=== PATIENT | female | born 1960 | race African-American/Black ===

== ENCOUNTER → 2016-08-25 | Outpatient (REF) ==
[~2016-08-25] MED LIST: ADIPEX-P37.5 M1 PO; AMOXICILLIN 8751 TAB PO; ASPIRIN 32325 MG/TAB PO; BIOTIN1000 MCG PO; CORICIDIN COUGH1 TAB PO; GLUCOPHAGE500 MG/TAB PO; HCTZ 25MG TAB25 MG PO; LIPITOR20 MG PO; MEVACOR40 MG PO; PRIL40 PO; SINUS PO; TENORMIN 2525 MG/TAB PO
== END ==
LOC: WSOH 10:57
DX: Z02.1 Encounter for pre-employment examination (principal)

== ENCOUNTER → 2016-08-25 | Outpatient (REF) | LOC: WSOH 11:00 | DX: Z00.00 Encounter for general adult medical examination without abnormal findings (principal) ==

== ENCOUNTER → 2016-09-01 | Outpatient (REF) | LOC: WSOH 08:21 | DX: Z23 Encounter for immunization (principal) ==

== ENCOUNTER → 2016-10-08 | Outpatient (REF) | LOC: WSOH 15:40 | DX: Z02.89 Encounter for other administrative examinations (principal) ==

== ENCOUNTER 2016-11-11 10:41 | Emergency (ER) | payer OTHER ==
[~2016-11-11] VITALS: Ht 175.3 cm; Wt 97.7 kg
[~2016-11-11 10:41] MED LIST changes: -GLUCOPHAGE500 MG/TAB PO; -MEVACOR40 MG PO; -PRIL40 PO
[2016-11-11 10:49] VITALS: BP 131/65; PULSE 86; TEMP 98.9
[2016-11-11] MEDS ORDERED: GLUCOPHAGE500 MG/TAB PO (11:22)
== END 2016-11-11 12:02 | disposition home or self-care (01) ==
LOC: COL.ER 10:41
DX: S83.91XA Sprain of unspecified site of right knee, initial encounter (principal); I10 Essential (primary) hypertension; Z79.82 Long term (current) use of aspirin; Z98.890 Other specified postprocedural states; X50.1XXA Overexertion from prolonged static or awkward postures, initial encounter
CPT/HCPCS: L1830

== ENCOUNTER 2016-12-10 13:57 | Emergency (ER) | payer BC ==
[~2016-12-10] VITALS: Ht 175.3 cm; Wt 102.3 kg
[~2016-12-10 13:57] MED LIST changes: +GLUCOPHAGE500 MG/TAB PO
[2016-12-10 14:04] VITALS: BP 141/86; PULSE 84; TEMP 98.7
[2016-12-10] MEDS ORDERED: PRIL40 PO (14:16)
[2016-12-10] MEDS ORDERED: MEVACOR40 MG PO (14:16)
== END 2016-12-10 15:10 | disposition home or self-care (01) ==
LOC: COL.ER 13:57
DX: M76.62 Achilles tendinitis, left leg (principal); I10 Essential (primary) hypertension; E11.9 Type 2 diabetes mellitus without complications; Z79.84 Long term (current) use of oral hypoglycemic drugs

== ENCOUNTER 2018-04-25 17:49 | Emergency (ER) | payer BC ==
[~2018-04-25] VITALS: Ht 175.3 cm; Wt 124.1 kg
[~2018-04-25 17:49] MED LIST changes: +MEVACOR40 MG PO; +PRIL40 PO
[2018-04-25 17:59] VITALS: BP 136/99; TEMP 97
[2018-04-25 18:46] LABS: COLLECTION METHOD CLEAN CATCH
[2018-04-25 18:52] LABS: MUCOUS Present /lpf; PH 5 (5-8); URINE APPEARANCE Hazy; URINE BACTERIA Rare /hpf; URINE BILIRUBIN Negative (NEGATIVE); URINE BLOOD Negative (NEGATIVE); URINE COLOR Yellow; URINE GLUCOSE Negative (NEGATIVE); URINE KETONE Negative (NEGATIVE); URINE LEUKOCYTE ESTERASE Negative (NEGATIVE); URINE NITRATE Negative (NEGATIVE); URINE PROTEIN(semi-quant) Negative (NEGATIVE)
[2018-04-25 19:00] LABS: BASO # 0.1 (0.0-0.2); EOS # 0.2 (0.0-0.7); GRAN # 6.9 (1.4-6.5); GRAN % 73.8 % (42.2-75.2); HEMATOCRIT 40.2 % (37.0-47.0); HEMOGLOBIN 12.5 g/dl (12.5-16.0); LYMPH # 1.6 (1.2-3.4); LYMPH % 16.6 % (20.0-51.0); MEAN CELL VOLUME 90 fl (80.0-100.0); MEAN CORPUSCULAR HEMOGLOBIN 28 pg (27.0-31.0); MEAN CORPUSCULAR HGB CONC 31 g/dl (33.0-37.0); MEAN PLATELET VOLUME 10.6 fl (7.4-10.4); MONO # 0.6 (0.1-0.6); MONO % 6.5 % (1.7-9.3); PLATELET COUNT 291 K/mm3 (130-400); RED BLOOD COUNT 4.45 M/mm3 (4.10-5.30); REDCELL DISTRIBUTION WIDTH-CV 13.6 % (11.5-14.5)
[2018-04-25 19:09] LABS: ALBUMIN 4.2 gm/dL (3.5-5.0); BILIRUBIN,TOTAL 0.7 mg/dL (0.0-1.0); CALCIUM 9.9 mg/dL (8.4-10.2); CREATININE, serum 0.93 mg/dL (0.52-1.25); POTASSIUM 3.2 mmol/L (3.4-5.0); TOTAL PROTEIN 7.7 gm/dL (6.4-8.2)
[2018-04-25] MEDS ORDERED: BACTRIM DS 8001 TAB PO (19:20)
[2018-04-25] MEDS ORDERED: CEPHALEXIN500 M1 PO (19:20)
[2018-04-25] MEDS ORDERED: ZOFRAN ODT4 MG PO (19:20)
[2018-04-25 19:30] VITALS: PULSE 75
[2018-04-25] MEDS ORDERED: NEURONTIN300 MG/CAP PO ×2 (19:30→19:31)
== END 2018-04-25 19:30 | disposition home or self-care (01) ==
LOC: COL.ER 17:49
PROVIDERS: Physician Assistant
DX: L03.313 Cellulitis of chest wall (principal); Z79.82 Long term (current) use of aspirin; Z79.84 Long term (current) use of oral hypoglycemic drugs

== ENCOUNTER 2018-11-11 01:08 | Emergency (ER) | payer OTHER ==
[~2018-11-11] VITALS: Ht 175.3 cm; Wt 111.8 kg
[~2018-11-11 01:08] MED LIST changes: -ASPIRIN 32325 MG/TAB PO; +ASPIRIN 81M81 MG/TA2 PO; +BACTRIM DS 8001 TAB PO; +CEPHALEXIN500 M1 PO; +NEURONTIN300 MG/CAP PO; +ZOFRAN ODT4 MG PO
[2018-11-11 01:12] VITALS: BP 168/83; TEMP 97.7
[2018-11-11] MEDS ORDERED: NORCO 325 MG-51 TAB PO (02:03)
[2018-11-11] MEDS ORDERED: ULTRAM 50MG TAB50 MG PO (02:03)
[2018-11-11] MEDS ORDERED: CRUTCHES MC (02:23)
[2018-11-11 03:16] VITALS: PULSE 70
== END 2018-11-11 03:16 | disposition home or self-care (01) ==
LOC: COL.ER 01:08
DX: M79.662 Pain in left lower leg (principal); E11.9 Type 2 diabetes mellitus without complications; I10 Essential (primary) hypertension; E78.5 Hyperlipidemia, unspecified; Z79.4 Long term (current) use of insulin; Z86.73 Personal history of transient ischemic attack (TIA), and cerebral infarction without residual deficits; Z90.89 Acquired absence of other organs; Z79.82 Long term (current) use of aspirin; Z79.84 Long term (current) use of oral hypoglycemic drugs; Z98.890 Other specified postprocedural states
CPT/HCPCS: Q4041

== ENCOUNTER → 2019-06-19 | Outpatient (CLI) | payer BC ==
[~2019-06-19] MED LIST changes: +CRUTCHES MC; +NORCO 325 MG-51 TAB PO; +ULTRAM 50MG TAB50 MG PO
== END ==
LOC: MC.RAD 11:22
DX: Z12.31 Encounter for screening mammogram for malignant neoplasm of breast (principal); N64.89 Other specified disorders of breast; N63.10 Unspecified lump in the right breast, unspecified quadrant; N63.20 Unspecified lump in the left breast, unspecified quadrant

== ENCOUNTER → 2019-07-16 | Outpatient (CLI) | payer BC | LOC: MC.RAD 14:55 | DX: N64.89 Other specified disorders of breast (principal) | CPT/HCPCS: G0279 ==